=== PATIENT | male | born 1970 | race Caucasian/White ===

== ENCOUNTER 2021-04-21 18:42 | Outpatient (CLI) | payer OTHER, SELFPAY ==
[2021-04-21 16:53] LABS: HIV 1/2 Ab Rapid Negative (Negative)
[2021-04-23 10:22] LABS: HIV-1/2 Ag & Ab Screen Negative (Negative)
[2021-04-23 10:40] LABS: Hepatitis C Ab w Rflx HCV PCR Negative (Negative)
[2021-04-23 10:51] LABS: Hep B Core Antibody Negative (Negative)
== END 2021-04-21 18:43 | disposition home or self-care (01) ==
LOC: LBO 18:43
PROVIDERS: Visit Provider Nurse Practitioner Family
DX: Z77.21 Contact with and (suspected) exposure to potentially hazardous body fluids (principal)
CPT/HCPCS: 86704; 86803; 87389

== ENCOUNTER 2021-04-28 11:56 | Outpatient (CLI) | payer OTHER, SELFPAY ==
[2021-04-28 16:57] LABS: ALT 34 U/L (16-63); AST 21 U/L (15-37); Albumin 4.1 g/dL (3.4-5.0); Alkaline Phosphatase 115 U/L (46-116); Bilirubin, Direct 0.2 mg/dL (0.0-0.2); Bilirubin, Total 0.7 mg/dL (0.2-1.0); Total Protein 7.3 g/dL (6.4-8.2)
[2021-04-30 10:23] LABS: Hepatitis B Surface Ag Negative (Negative)
== END 2021-04-28 11:57 | disposition home or self-care (01) ==
PROVIDERS: Visit Provider Nurse Practitioner Family
DX: Z77.21 Contact with and (suspected) exposure to potentially hazardous body fluids (principal)
CPT/HCPCS: 36415; 80076; 87340

== ENCOUNTER 2021-06-02 03:00 | Outpatient (CLI) | payer OTHER, SELFPAY ==
[2021-06-03 10:00] LABS: Hepatitis C Ab w Rflx HCV PCR Negative (Negative)
[2021-06-03 10:10] LABS: HBs Antibody, Quant 4.4 mIU/mL (See Note); Hepatitis B Surface Ab Negative (See Note)
== END 2021-06-02 03:01 | disposition home or self-care (01) ==
LOC: LBO 03:00
PROVIDERS: PCP Internal Medicine; Visit Provider Nurse Practitioner Family
DX: Z77.21 Contact with and (suspected) exposure to potentially hazardous body fluids (principal)
CPT/HCPCS: 36415; 86706; 86803

== ENCOUNTER 2021-07-20 02:19 | Outpatient (CLI) | payer OTHER, SELFPAY | END 2021-07-20 02:20 | disposition home or self-care (01) | LOC: LBO 02:20 | PROVIDERS: PCP Internal Medicine; Visit Provider Nurse Practitioner Family | DX: Z77.21 Contact with and (suspected) exposure to potentially hazardous body fluids (principal) | CPT/HCPCS: 36415; 86803 ==

== ENCOUNTER 2021-08-03 02:52 | Outpatient (CLI) | payer OTHER, SELFPAY ==
[2021-08-03 14:01] LABS: HIV 1/2 Ab Rapid Negative (Negative)
[2021-08-04 10:34] LABS: HIV-1/2 Ag & Ab Screen Negative (Negative)
== END 2021-08-03 02:53 | disposition home or self-care (01) ==
LOC: LBO 02:53
PROVIDERS: PCP Internal Medicine; Visit Provider Nurse Practitioner Family
DX: Z11.4 Encounter for screening for human immunodeficiency virus [HIV] (principal); Z77.21 Contact with and (suspected) exposure to potentially hazardous body fluids
CPT/HCPCS: 87389

== ENCOUNTER 2021-10-19 01:52 | Outpatient (CLI) | payer OTHER, SELFPAY ==
[2021-10-20 10:51] LABS: HBs Antibody, Quant >1000.0 mIU/mL (See Note); Hepatitis B Surface Ab Positive (See Note)
[2021-10-20 11:31] LABS: Hepatitis C Ab w Rflx HCV PCR Negative (Negative)
== END 2021-10-19 01:53 | disposition home or self-care (01) ==
LOC: LBO 01:52
PROVIDERS: Nurse Practitioner Family; PCP Internal Medicine; Visit Provider Nurse Practitioner Family
DX: Z77.21 Contact with and (suspected) exposure to potentially hazardous body fluids (principal)
CPT/HCPCS: 36415; 86706; 86803

== ENCOUNTER 2022-11-01 18:02 | Outpatient (REF) | payer BC, SELFPAY ==
[2022-11-01 20:07] LABS: HCT 40.8 % (40.0-50.0); HGB 13.9 g/dL (13.5-17.5); MCH 30.8 pg (27.0-33.0); MCHC 34.1 % (32.0-36.0); MCV 91 fL (80-95); MPV 11.8 fL (8.0-11.0); Platelet Count 263 10^3/uL (130-400); RBC 4.51 10^6/uL (4.36-5.78); RDW 12.7 % (11.8-14.1); RDW-SD 41.6 fL; WBC 7.09 10^3/uL (4.4-10.8)
[2022-11-01 21:01] LABS: ALT 33 U/L (16-63); AST 18 U/L (15-37); Albumin 3.7 g/dL (3.4-5.0); Alkaline Phosphatase 109 U/L (46-116); Anion Gap 9.4 mmol/L (3-11); BUN 11 mg/dL (7-18); Bilirubin, Total 0.6 mg/dL (0.2-1.0); CO2 26.6 mmol/L (21.0-32.0); Calcium 8.9 mg/dL (8.5-10.1); Calculated LDL 95 mg/dL (<100); Chloride 104 mmol/L (98-107); Cholesterol 180 mg/dL (<200); Estimated GFR 90.56 (mL/min/1.73m2); Glucose 127 mg/dL (74-106); HDL Cholesterol 47 mg/dL (40-60); Sodium 140 mmol/L (136-145); Total Protein 6.6 g/dL (6.4-8.2); Triglyceride 191 mg/dL (<150)
[2022-11-02 19:03] LABS: PSA, Screening 0.8 ng/mL (<=3.5)
== END 2022-11-01 18:03 | disposition home or self-care (01) ==
LOC: NCHCN 18:02
PROVIDERS: PCP Internal Medicine; Visit Provider Physician Assistant
DX: N40.0 Benign prostatic hyperplasia without lower urinary tract symptoms (principal)
CPT/HCPCS: 80053; 80061; 84153; 85027

== ENCOUNTER 2022-11-08 14:13 | Outpatient (REF) | payer BC, SELFPAY ==
--- NOTE | 2022-11-08 13:44 | SKI_PTH ---
PATIENT: Tavon Williamson LOC: [facility]#:[id number] AGE/SX: 52/M ROOM: RE11/08/[address]: Todd Blum : 1970 BED: DIS: 11/08/2022 SPEC #: [id number] RECD: 11/09/22 13:01 STATUS: GAURI RE #: [id number] SERGIO: 11/08/22 13:[address]: Todd Blum DEPT: Surgical Specimen RECD BY: Melonie Gregory ENTERED: 11/09/22 13:01 SP TYPE: SKI OTHR DR: Ren Merrill Tissues: 1 - SKIN BIOPSY(SHAVE/PUNCH) Procedures: IMMUNOPEROXIDASE STAIN SKIN LEVEL 4 Comments: [id number]
== END 2022-11-08 14:14 | disposition home or self-care (01) ==
LOC: NCHCN 14:13
PROVIDERS: PCP Internal Medicine; Visit Provider Physician Assistant
DX: D22.5 Melanocytic nevi of trunk (principal)
CPT/HCPCS: 88305; 88361

== ENCOUNTER 2024-06-14 11:41 | Outpatient (REF) | payer OTHER, SELFPAY ==
[2024-06-14 15:14] LABS: Hemoglobin A1C 5.6 % (<5.7)
[2024-06-14 15:22] LABS: Calculated LDL 138 mg/dL (<100); Cholesterol 204 mg/dL (<200); HDL Cholesterol 57 mg/dL (>or=40); Triglyceride 47 mg/dL (<150)
== END 2024-06-14 11:42 | disposition home or self-care (01) ==
LOC: NCHCN 11:41
PROVIDERS: PCP Physician Assistant; Visit Provider Physician Assistant
DX: Z13.1 Encounter for screening for diabetes mellitus (principal); E78.5 Hyperlipidemia, unspecified
CPT/HCPCS: 80061; 83036